=== PATIENT | male | born 1995 | race Caucasian/White ===

== ENCOUNTER 2024-05-30 09:53 | Outpatient (AMB) | payer BC, SELFPAY ==
[2024-05-30 10:24] VITALS: BP 138/82; PULSE 101; O2SAT 98; BMI 28.8
--- NOTE | 2024-05-30 10:24 | MHC.OFFVIS ---
Vital Signs 05/30/24 10:24 Height 6 ft Weight 212 lb 8.41 oz BMI 28.8 BP 138/82 Blood Pressure Location Lt brachial Position Sitting Pulse 101 H Pulse Source Pulse Oximeter Pulse Oximetry (%) 98 Oxygen Delivery Method Room Air Intake Visit Reasons: /CM Intake Note: Patient is here for follow up on . Allergies amoxicillin Allergy (Mild, Verified 05/30/24 10:31) rash cephalexin [From Keflex] Allergy (Mild, Verified 05/30/24 10:31) Rash sulfates Allergy (Mild, Uncoded 05/30/24 10:34) rash, cancker sores HPI HPI /CM: Details: Takes tylenol 1300mg BID. Pain in lower back and mid back radiating to ribs. Heat helps. Did not go to physical therapy for hip strengthening. X-ray of his left hip was normal. MS in lower back 35 minutes. Hx IgA nephropathy controlled on losartan. Denies joint swelling or recent infections. He has the muscle relaxer cyclobenzaprine in the past prescribed by Rheumatology without benefit. [facility] Medical History (Updated 05/30/24 @ 11:18 by Dmitry Mao MD) Ankylosing spondylitis IgA nephropathy Surgical History (Updated 05/30/24 @ 10:37 by Ashtyn Lewis CMA) H/O biopsy of kidney Family History (Updated 05/30/24 @ 10:39 by Ashtyn Lewis CMA) Father Cardiac arrest Ankylosing spondylitis Psoriatic arthritis Diabetes Social History (Updated 05/30/24 @ 10:40 by Ashtyn Lewis CMA) Alcohol intake: former Patient Tobacco Use Status: Never used Tobacco Use of substances other than those prescribed or required for medical reasons: No Review of Systems Const All systems reviewed & are unremarkable except as noted in HPI and below Physical Exam Vital Signs: Last Vital Signs Pulse 101 H 05/30/24 10:24 BP 138/82 05/30/24 10:24 Pulse Ox 98 05/30/24 10:24 Oxygen Delivery Method Room Air 05/30/24 10:24 BMI result Body Mass Index 28.8 Const Other: General: Comfortable CVS: RRR Respiratory: clear to auscultation bilaterally. Good respiratory effort Skin: No lesions seen MSK: Tender to palpate cervical spinous process and paraspinal muscles. Good cervical range of motion. Tender to palpate lateral to upper lumbar spinous process. No lumbar or thoracic spinous process tenderness. Good lumbar flexion. No SI joint tenderness. Negative JUNAID. Left hip external rotation is limited compared to right hip. No synovitis of any joints appreciated. No tenderness of any peripheral joints. Good range of motion of joints in upper extremity. Assessment & Plan Assessment & Plan (1) Back pain: Comment: He has had prior workup for ankylosing spondylitis due to inflammatory back pain symptoms with elevated inflammatory markers. He had MRI pelvis, which was unremarkable. [facility] records were not received for review. His current back pain is due to myofascial strain. We discussed management. Code(s): M54.9 - Dorsalgia, unspecified Category: Medical Plan: Start baclofen 5 mg q.h.s. daily then as needed for back pain. If no benefit on baclofen, we will increase dose PT requisition given to patient. He will start PT in a month for back strengthening and improving left hip range of motion Labs for baseline ordered including inflammatory markers [facility] records requested Continue Tylenol 1300 mg b.i.d. Continue to apply heat to back as needed He will also use TENs unit a few times a week, which she has a home Return to clinic in 3 months Orders: Orders C Reactive Protein Today M54.9 - Dorsalgia, unspecified Creatinine Today M54.9 - Dorsalgia, unspecified Complete Blood Count Auto Diff Today M54.9 - Dorsalgia, unspecified PT Evaluation and Treatment 1 Month M54.9 - Dorsalgia, unspecified Alanine Aminotransferase Today M54.9 - Dorsalgia, unspecified Aspartate Amino Transferase Today M54.9 - Dorsalgia, unspecified Erythrocyte Sedimentation Rate Today M54.9 - Dorsalgia, unspecified Medications: New baclofen 5 mg PO BEDTIME 30 tabs 1RF Coding Level of Care Code Est Pt Level 4 (14986) Complex EM visit Add On G2211 Diagnoses Back pain M54.9
== END 2024-05-30 11:20 | disposition home or self-care (01) ==
PROVIDERS: Visit Provider Internal Medicine Rheumatology
DX: M54.9 Dorsalgia, unspecified (principal)
CPT/HCPCS: 99214

== ENCOUNTER 2024-05-30 09:53 | Outpatient (REF) | payer BC, SELFPAY ==
[2024-05-30 12:07] LABS: MANUAL DIFF FLAG NO
[2024-05-30 12:43] LABS: Basophils Absolute Auto 0.1 X10*3/uL (0.0-0.2); Basophils Percent Auto 0.6 % (0-2); Eosinophils Absolute Auto 0.1 X10*3/uL (0.0-0.4); Eosinophils Percent Auto 1.8 % (0-4); Hematocrit 39.4 % (42.0-52.0); Hemoglobin 12.8 g/dl (14.0-18.0); Imm Gran Abs Auto 0.03 X10*3/uL (0.00-0.03); Imm Gran Pct Auto 0.4 % (0.0-0.4); Lymphocytes Absolute Auto 1.9 X10*3/uL (1.2-4.9); Lymphocytes Percent Auto 24.5 % (20-40); Mean Corpuscular HGB Conc 32.5 g/dl (31.0-36.0); Mean Corpuscular Hemoglobin 26.8 pg (27.0-33.0); Mean Corpuscular Volume 82.4 fL (80.0-98.0); Monocytes Absolute Auto 0.7 X10*3/uL (0.1-1.2); Monocytes Percent Auto 8.6 % (2-11); Neutrophils Absolute Auto 4.9 x10*3/uL (2.0-8.3); Neutrophils Percent Auto 64.1 % (45-73); Platelet Count 368 X10*3/uL (160-400); Red Blood Count 4.78 X10*6/uL (4.60-5.80); Red Cell Distribution Width 13.4 % (11.0-16.0); White Blood Count 7.7 X10*3/uL (4.8-10.8)
[2024-05-30 13:24] LABS: Alanine Aminotransferase 17 U/L (0-40); Aspartate Amino Transferase 23 U/L (5-37); C Reactive Protein 8.48 mg/dL (< or = 0.50); Estimated Glomerular Filt Rate > 60
[2024-05-30 13:31] LABS: Erythrocyte Sedimentation Rate 44 MM/HR (0-15)
== END 2024-05-30 09:54 | disposition home or self-care (01) ==
LOC: HO.LAB 09:53
PROVIDERS: PCP Registered Nurse; Visit Provider Internal Medicine Rheumatology
DX: M54.9 Dorsalgia, unspecified (principal)
CPT/HCPCS: 36415; 82565; 84450; 84460; 85025; 85652; 86140

== ENCOUNTER 2024-11-23 09:12 | Outpatient (AMB) | payer OTHER, SELFPAY ==
--- NOTE | 2024-11-23 09:14 | A.OFFVIS_ITS ---
Vital Signs 11/23/24 09:15 Height 6 ft Weight 221 lb 12.56 oz BMI 30.1 BP 126/84 Blood Pressure Location Lt brachial Position Sitting Pulse 81 Pulse Source Pulse Oximeter Pulse Oximetry (%) 97 Oxygen Delivery Method Room Air Intake Visit Reasons: Follow Up 4mo Intake Note: Patient is here for follow up on . Allergies amoxicillin Allergy (Mild, Verified 11/23/24 09:14) rash cephalexin [From Keflex] Allergy (Mild, Verified 11/23/24 09:14) Rash sulfates Allergy (Mild, Uncoded 05/30/24 10:34) rash, cancker sores HPI HPI Follow Up 4mo: Details: He feels well. He changed his job from a physical job working 8 hour shifts. He is now pursuing a master's program. He completed 6 weeks of physical therapy and has been doing exercises at home regularly in the evening. He applies heat to his back with benefit. Denies nocturnal pain. No new joint swelling or dactylitis. No fevers, dyspnea, urinary symptoms. Baclofen was ineffective. He reports that IgA nephropathy is controlled on valsartan. Since his blood pressure has been controlled he has had less headaches and overall he has felt better. [facility] Medical History Ankylosing spondylitis IgA nephropathy Surgical History H/O biopsy of kidney Family History Father Cardiac arrest Ankylosing spondylitis Psoriatic arthritis Diabetes Social History Alcohol intake: former Patient Tobacco Use Status: Never used Tobacco Physical Exam Vital Signs: Last Vital Signs Pulse 81 11/23/24 09:15 BP 126/84 11/23/24 09:15 Pulse Ox 97 11/23/24 09:15 Oxygen Delivery Method Room Air 11/23/24 09:15 BMI result Body Mass Index 30.1 Const Other: General: Comfortable Skin: No lesions seen MSK: No cervical spinous process tenderness. Good cervical range of motion. Tender to palpate paraspinal muscles of lower thoracic and upper lumbar spine. He has tenderness of lower lumbar paraspinal muscles and laterally of both sides. No lumbar or thoracic spinous process tenderness. Good lumbar flexion. No SI joint tenderness. Negative JUNAID. No trochanteric bursa tenderness found. No synovitis of any joints appreciated. No tenderness of any peripheral joints. Normal range of motion of upper extremities and lower extremities. Assessment & Plan Assessment & Plan (1) Back pain: Comment: Improved with physical therapy and changing his physical job. Due to myofascial strain. Low clinical suspicion for axial inflammatory arthritis. Code(s): M54.9 - Dorsalgia, unspecified Category: Medical Qualifiers: Back pain location: low back pain Chronicity: chronic Back pain lat erality: bilateral Sciatica presence: without sciatica Qualified Code(s): M54.50 - Low back pain, unspecified; G89.29 - Other chronic pain Plan: Increased frequency of PT exercises at home to daily Continue to apply heat to back. He can try applying heat to back twice a day He has TENs unit at home. I recommend that he start using it a few times a week. Continue Tylenol as needed Return to clinic PRN Coding Level of Care Code Est Pt Level 3 (18574) Complex EM visit Add On G2211 Diagnoses Chronic bilateral low back pain without sciatica M54.50; G89.29 Back pain location: low back pain Chronicity: chronic Back pain laterality: bilateral Sciatica presence: without sciatica
[2024-11-23 09:15] VITALS: BP 126/84; PULSE 81; O2SAT 97; BMI 30.1
--- OUTSIDE RECORDS SUMMARY | 2024-11-23 09:37 | XMS_ITS | Encounter Summary ---
Author Organization [facility] Address [address] [place] [address] Phone Care Team Providers Care Water Resource Specialist Name Role Phone Sean Gunter Primary Care Provider [phone] Encounter Details Date Type Department Care Team (Late st Contact Info) Description 12/14/2023 Documentation Only [facility] [address] [place] [address] Charity Lagos [address] [place] [id number] Social History Tobacco Use Types Packs/Day Years Used Date Smoking Tobacco: Never Smokeless Tobacco: Never Alcohol Use Standard Drinks/Week Comments Yes 0 (1 standard drink = 0.6 oz pur e alcohol) Sex and Gender Information Value Date Recorded Sex Assigned at Not on file Legal Sex Male 10:57 AM EDT Gender Identity Not on file Sexual Orientation Not on file 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 [address] documented as of this encounter Visit Diagnoses Not on filedocumented in this encounter Care Teams Water Resource Specialist Relationship Specialty Start Date End Date Sean Gunter [address] [place] [id number] PCP - General 10/04/23 documented as of this encounter
== END 2024-11-23 10:08 | disposition home or self-care (01) ==
PROVIDERS: PCP Registered Nurse; Visit Provider Internal Medicine Rheumatology
DX: M54.50 Low back pain, unspecified (principal); G89.29 Other chronic pain
CPT/HCPCS: 99213; G2211

== ENCOUNTER → 2024-11-23 09:12 | Outpatient (BNVA) | payer OTHER, SELFPAY | PROVIDERS: PCP Registered Nurse; Visit Provider Internal Medicine Rheumatology ==